=== PATIENT | male | born 1995 | race Caucasian/White ===

== ENCOUNTER 2024-08-01 20:10 | Emergency (ER) | payer SELFPAY ==
[~2024-08-01] VITALS: Ht 165.1 cm; Wt 75.7 kg
[2024-08-01] MEDS ORDERED: LIDOCAINE 1% INJ 50 ML MDV IJ ONE (22:01)
[2024-08-01] MEDS: TDAP [DIPH/PERTUSSIS/TET] 0.5 ML VIAL IM ONE (22:09)
[2024-08-01] MEDS ORDERED: CEPH-570 PO (22:53)
[2024-08-01 23:30] VITALS: BP 130/80; TEMP 98.6; O2SAT 98
== END 2024-08-01 23:30 | disposition home or self-care (01) ==
LOC: ER 20:14
DX: S61.211A Laceration without foreign body of left index finger without damage to nail, initial encounter (principal); W26.0XXA Contact with knife, initial encounter; Y93.89 Activity, other specified; Y92.89 Other specified places as the place of occurrence of the external cause; Y99.8 Other external cause status
CPT/HCPCS: 12002; 99283; J3490; 90715

== ENCOUNTER 2024-08-17 03:48 | Emergency (ER) | payer SELFPAY ==
[~2024-08-17] VITALS: Ht 160 cm; Wt 72.6 kg
[~2024-08-17 03:48] MED LIST: CEPH-570 PO
[2024-08-17 04:52] VITALS: BP 125/72; TEMP 98.1; O2SAT 100
== END 2024-08-17 04:52 | disposition home or self-care (01) ==
LOC: ER 03:54
DX: S61.211D Laceration without foreign body of left index finger without damage to nail, subsequent encounter (principal); R20.0 Anesthesia of skin; Z48.02 Encounter for removal of sutures; Z60.2 Problems related to living alone; X58.XXXD Exposure to other specified factors, subsequent encounter